=== PATIENT | female | born 2000 | race African-American/Black ===

== ENCOUNTER 2023-07-09 20:43 | Emergency (ER) | payer OTHER ==
[~2023-07-09] VITALS: Ht 152.4 cm; Wt 54.5 kg
[2023-07-09 21:12] VITALS: TEMP 98.7
[2023-07-10 00:17] LABS: RSV AMPLIFICATION NEGATIVE (NEGATIVE)
[2023-07-10 01:06] VITALS: BP 121/77; O2SAT 100
[2023-07-10] MEDS ORDERED: ONDANSETRON 4MG ORAL DISINTEGRATING TAB PO ONE (01:15)
== END 2023-07-10 01:22 | disposition short-term general hospital (02) ==
LOC: EDBD 20:43 → M ED 20:43
DX: S01.111A Laceration without foreign body of right eyelid and periocular area, initial encounter (principal); H05.221 Edema of right orbit; W18.2XXA Fall in (into) shower or empty bathtub, initial encounter; Y04.0XXA Assault by unarmed brawl or fight, initial encounter; F17.200 Nicotine dependence, unspecified, uncomplicated; F10.10 Alcohol abuse, uncomplicated; Y92.012 Bathroom of single-family (private) house as the place of occurrence of the external cause; Y93.9 Activity, unspecified; Y99.9 Unspecified external cause status